=== PATIENT | male | born 2000 | race Hispanic/Latino ===

== ENCOUNTER 2021-07-25 13:39 | Emergency (ER) | payer OTHER ==
[~2021-07-25] VITALS: Ht 188 cm; Wt 98.5 kg
[2021-07-25] MEDS ORDERED: KETOROLAC 30 MG/ML 1ML VIAL IV ONE (14:25)
--- NOTE | 2021-07-25 14:54 | REP ---
INDICATION: trauma COMPARISON: None. TECHNIQUE: AP and lateral views of the right tibia/fibula. FINDINGS: The osseous structures and joint spaces are intact and normal. There is no evidence for acute fracture or dislocation. Surrounding soft tissues are unremarkable. No subcutaneous emphysema or radiodense foreign body. IMPRESSION: No acute fracture or dislocation. <Electronically signed by Maxi Mcconnell > 07/25/21 [id number]
--- NOTE | 2021-07-25 14:56 | REP ---
INDICATION: trauma COMPARISON: None. TECHNIQUE: AP, lateral, bilateral oblique views of the right knee. FINDINGS: The osseous structures and joint spaces are intact and normal. There is no evidence for acute fracture or dislocation. No joint effusion is appreciated. Surrounding soft tissues are unremarkable. No subcutaneous emphysema or radiodense foreign body. IMPRESSION: No evidence for acute fracture or dislocation. <Electronically signed by Maxi Mcconnell > 07/25/21 [id number]
--- NOTE | 2021-07-25 15:00 | REP ---
INDICATION: trauma. COMPARISON: None. TECHNIQUE: Four views FINDINGS: No acute fracture or destructive osseous lesion. The mortise is intact. IMPRESSION: No acute abnormality <Electronically signed by Minh Simmons > 07/25/21 [id number]
--- NOTE | 2021-07-25 15:44 | REP ---
INDICATION: trauma COMPARISON: None. TECHNIQUE: AP and lateral right foot FINDINGS: The osseous structures and joint spaces are intact and normal. There is no evidence for acute fracture or dislocation. Surrounding soft tissues are unremarkable. No subcutaneous emphysema or radiodense foreign body. IMPRESSION: No acute fracture or dislocation. <Electronically signed by Maxi Mcconnell > 07/25/21 [id number]
[2021-07-25 16:51] VITALS: BP 129/88
== END 2021-07-25 17:34 | disposition home or self-care (01) ==
LOC: M ED 13:39 → EDBD 13:39 → M ED 17:34
DX: S93.401A Sprain of unspecified ligament of right ankle, initial encounter (principal); X50.1XXA Overexertion from prolonged static or awkward postures, initial encounter; Y92.830 Public park as the place of occurrence of the external cause; Y93.66 Activity, soccer; Y99.9 Unspecified external cause status
CPT/HCPCS: 73564; 73590; 73610; 73620; 96374; 99284; J1885